=== PATIENT | female | born 1995 | race Two or more races ===

== ENCOUNTER 2018-11-27 00:01 | Emergency (ER) | payer BC, OTHER ==
[2018-11-27] MEDS ORDERED: Cephalexin 250 MG Cap PO ONE (00:24)
--- NOTE | 2018-11-27 00:29 | EDM.PDOC ---
ED HPI GENERAL MEDICAL PROBLEM - General Chief Complaint: General Stated Complaint: infection Time Seen by Provider: 11/27/18 00:15 Source of Information: Reports: Patient History Limitations: Reports: No Limitations - History of Present Illness INITIAL COMMENTS - FREE TEXT/NARRATIVE: Patient is a 23-year-old female who presents to the emergency department this evening with a complaint of infection at surgical site. Patient states that she had a skin biopsy performed on her abdomen. 7 days ago. This was done by a commissioned police officer in [place]. Wound was closed with running suture. Patient states now she noticed redness around the site. Patient denies any discharge from site, abdominal pain, nausea, vomiting, diarrhea, or fever. Onset: Gradual Duration: Day(s): Location: Reports: Abdomen Severity: Mild Improves with: Reports: None Worsens with: Reports: None Associated Symptoms: Reports: No Other Symptoms. Denies: Fever/Chills Abdomen Pain Score (Numeric/FACES): 4 - Related Data Allergies Allergy/AdvReac Type Severity Reaction Status Date / Time aloe vera Allergy Itching Verified 11/27/18 00:09 Penicillins Allergy Hives Verified 11/27/18 00:08 Home Meds: Home Meds Ondansetron HCl [Ondansetron] 4 mg PO Q4H PRN 02/02/18 [History] Promethazine [Phenergan] 12.5 mg PO Q8H 02/02/18 [History] Cephalexin [Keflex] 500 mg PO TID #15 capsule 11/27/18 [Rx] Divalproex Sodium [Depakote] 500 mg PO BID 11/27/18 [History] Past Medical History Gastrointestinal History: Reports: GERD, Other (See Below) Other Gastrointestinal History: undiagnosed problem that has caused vomiting and weight loss - Past Surgical History HEENT Surgical History: Reports: Tonsillectomy ED ROS GENERAL - Review of Systems Review Of Systems: ROS reveals no pertinent complaints other than HPI. Constitutional: Reports: No Symptoms HEENT: Reports: No Symptoms Respiratory: Reports: No Symptoms Cardiovascular: Reports: No Symptoms Endocrine: Reports: No Symptoms GI/Abdominal: Reports: No Symptoms : Reports: No Symptoms Musculoskeletal: Reports: No Symptoms Skin: Reports: Erythema Neurological: Reports: No Symptoms Psychiatric: Reports: No Symptoms Hematologic/Lymphatic: Reports: No Symptoms Immunologic: Reports: No Symptoms ED EXAM, GENERAL - Physical Exam Exam: See Below Exam Limited By: No Limitations General Appearance: Alert, WD/WN, No Apparent Distress Throat/Mouth: Normal Inspection, Normal Oropharynx, No Airway Compromise Respiratory/Chest: No Respiratory Distress Neurological: Alert, Oriented, Normal Cognition Psychiatric: Normal Affect, Normal Mood Skin Exam: Warm, Dry, Intact, Normal Color, No Rash, Erythema (At lower right abdomen 2 cm biopsy incision site with running suture intact, has 1 cm border, erythema, without abscess) Lymphatic: No Adenopathy Course - Vital Signs Last Recorded V/S: Last Vital Signs Temp 99.1 F 11/27/18 00:12 Pulse 95 11/27/18 00:12 Resp 16 11/27/18 00:12 BP 143/74 H 11/27/18 00:12 Pulse Ox 97 11/27/18 00:12 - Orders/Labs/Meds Orders: Active Orders 24 hr Category Date Time Status cephALEXin [Keflex] Med 11/27/18 00:24 Once 500 mg PO ONETIME ONE - Re-Assessments/Exams Free Text/Narrative Re-Assessment/Exam: 11/27/18 00:29 Patient is afebrile, vital signs stable, given 500 mg Keflex in ER. Patient given prescription for Keflex and will follow-up with PCP in 2-3 days Departure - Departure Time of Disposition: 00:30 Disposition: Home, Self-Care 01 Condition: Good Clinical Impression: Cellulitis Qualifiers: Site of cellulitis: trunk Site of cellulitis of trunk: abdominal wall Qualified Code(s): L03.311 - Cellulitis of abdominal wall - Discharge Information Instructions: Cellulitis, Adult, [id number] Additional Instructions: Follow-up with PCP in 2-3 days. Return to emergency department sooner if symptoms continue or worsen. Take medication as prescribed. - My Orders Last 24 Hours: My Active Orders 11/27/18 00:24 cephALEXin [Keflex] 500 mg PO ONETIME ONE - Assessment/Plan Last 24 Hours: My Active Orders 11/27/18 00:24 cephALEXin [Keflex] 500 mg PO ONETIME ONE Assessment:: Cellulitis Plan: Follow-up with PCP
== END 2018-11-27 00:45 | disposition home or self-care (01) ==
LOC: KA.ED 00:01
DX: L03.311 Cellulitis of abdominal wall (principal); K21.9 Gastro-esophageal reflux disease without esophagitis; Z79.899 Other long term (current) drug therapy; Z88.0 Allergy status to penicillin; Z98.890 Other specified postprocedural states
CPT/HCPCS: 99282; A9270-GY

== ENCOUNTER 2020-05-29 00:25 | Emergency (ER) | payer MEDICAID ==
[2020-05-29] MEDS ORDERED: Propofol 200 MG/20 ML SDV IV ONE (00:26)
[2020-05-29] MEDS ORDERED: Succinylcholine 200 MG/10 ML MDV IV ONE (00:26)
[2020-05-29] MEDS ORDERED: Etomidate 2 MG/ML 10 ML SDV IV ONE (00:26)
[2020-05-29] MEDS: Sodium Chloride 0.9% 10 ML Syringe FLUSH PRN (00:50)
[2020-05-29] MEDS: levETIRAcetam in NaCl (iso-os) 500 MG in Premix Bag 1 BAG IV ONE ×6 (00:54→01:32)
--- NOTE | 2020-05-29 00:56 | EDM.PDOC ---
ED HPI GENERAL MEDICAL PROBLEM - General Chief Complaint: General Stated Complaint: seizure Time Seen by Provider: 05/29/20 00:25 Source of Information: Reports: EMS, Family - History of Present Illness INITIAL COMMENTS - FREE TEXT/NARRATIVE: 24 YO WF PRESENTS TO ER BY EMS IN STATUS EPILEPTICUS. PER EMS PT HAD BEEN SEIZING FOR 30 MINUTES PRIOR TO THIER ARRIVAL. PT WAS GIVEN VERSED 4MG AND ZOFRAN 8MG IN ROUTE AND WAS ACTIVELY SEIZING IN ER. PT WITH RECENT DIAGNOSIS OF SEIZURE DISORDER AND TAKING DEPAKOTE FOR SEIZURES. ACCORDING TO FAMILY, PT WAS DRINKING ALCOHOL TONIGHT AND WAS INTOXICATED AT TIME OF EMS CALL. PT WAS INTUBATED TO PROTECT AIRWAY IMMEDIATELY UPON ARRIVAL. FAMILY DENIES ANY FALL OR WITNESSED HEAD INJURY. FAMILY STATES SHE WAS WELL THIS EVENING AND DENIES ANY RECENT COUGH/CONGESTION, FEVER/CHILLS OR COMPLAINTS OF CHEST PAIN OR SHORTNESS OF BREATH. NO SIGNS OF INJURY ON EXAM. Onset: Sudden Duration: Hour(s): (1) Severity: Severe Improves with: Reports: None Worsens with: Reports: None Associated Symptoms: Reports: No Other Symptoms - Related Data Allergies Allergy/AdvReac Type Severity Reaction Status Date / Time aloe vera Allergy Itching Verified 05/29/20 00:27 Penicillins Allergy Hives Verified 05/29/20 00:27 Home Meds: Home Meds Divalproex Sodium [Depakote] 500 mg PO BID 11/27/18 [History] Past Medical History Gastrointestinal History: Reports: GERD, Other (See Below) Other Gastrointestinal History: undiagnosed problem that has caused vomiting and weight loss Neurological History: Reports: Seizure - Past Surgical History HEENT Surgical History: Reports: Tonsillectomy Other Cardiovascular Surgeries/Procedures: States she had a cardiac work up prior to surgery due to having a murmur Social & Family History - Family History Family Medical History: Noncontributory ED ROS GENERAL - Review of Systems Review Of Systems: Comprehensive ROS is negative, except as noted in HPI. Constitutional: Reports: No Symptoms Respiratory: Reports: No Symptoms Cardiovascular: Reports: No Symptoms Endocrine: Reports: No Symptoms GI/Abdominal: Reports: Vomiting : Reports: No Symptoms Musculoskeletal: Reports: No Symptoms Skin: Reports: No Symptoms Neurological: Reports: Seizure ED EXAM, GENERAL - Physical Exam Exam: See Below Exam Limited By: Altered Mental Status General Appearance: Alert, WD/WN, Obtunded, Severe Distress Eye Exam: Bilateral Eye: EOMI, PERRL Ears: Normal External Exam, Normal Canal, Hearing Grossly Normal, Normal TMs Throat/Mouth: Normal Inspection, Normal Lips, Normal Teeth, Normal Gums, Normal Oropharynx, Normal Voice, No Airway Compromise Head: Atraumatic, Normocephalic Neck: Normal Inspection, Supple, Non-Tender, Full Range of Motion Respiratory/Chest: No Respiratory Distress, Lungs Clear, Normal Breath Sounds, No Accessory Muscle Use, Chest Non-Tender Cardiovascular: Normal Peripheral Pulses, Regular Rate, Rhythm, No Edema, No Gallop, No JVD, No Murmur, No Rub GI/Abdominal: Normal Bowel Sounds, Soft, Non-Tender, No Organomegaly, No Distention, No Abnormal Bruit, No Mass Extremities: Normal Inspection, Normal Range of Motion, Non-Tender, Normal Capillary Refill, No Pedal Edema Neurological: Slow to Respond Skin Exam: Warm, Dry, Intact, Normal Color, No Rash EKG INTERPRETATION EKG Date: 05/29/20 Time: 01:03 Rhythm: NSR Rate (Beats/Min): 87 [place]: Normal P-Wave: Present QRS: Normal ST-T: Normal QT: Normal Course - Orders/Labs/Meds Orders: Active Orders 24 hr Category Date Time Status EKG Documentation Completion [RC] ASDIRECTED Care 05/29/20 00:32 Active Peripheral IV Care [RC] . DIRECTED Care 05/29/20 00:32 Active Chest 1V Frontal [CR] Stat Exams 05/29/20 00:32 Ordered Head wo Cont [CT] Stat Exams 05/29/20 00:32 Ordered Sodium Chloride 0.9% [Saline Flush] Med 05/29/20 00:32 Active 10 ml FLUSH Q8HR PRN Peripheral IV Insertion Adult [OM.PC] Routine Oth 05/29/20 00:32 Ordered EKG 12 Lead [EK] Stat Ther 05/29/20 00:32 Ordered Medication Orders Sodium Chloride (Saline Flush) 10 ml FLUSH Q8HR PRN PRN Reason: keep vein open Labs: Laboratory Tests 05/29/20 05/29/20 05/29/20 Range/Units 00:50 00:50 00:50 WBC 12.93 H (5.00-10.00) 10^3/uL RBC 4.84 (3.80-5.50) 10^6/uL Hgb 14.0 (12.0-16.0) g/dL Hct 42.7 (37.0-47.0) % MCV 88.2 (82.0-92.0) fL MCH 28.9 (27.0-31.0) pg MCHC 32.8 (32.0-36.0) g/dL RDW 13.5 (11.5-14.5) % Plt Count 345 (150-400) 10^3/uL MPV 10.1 (7.4-10.4) fL Immature Gran % (Auto) 0.2 (0.0-5.0) % Neut % (Auto) 55.4 (50.0-70.0) % Lymph % (Auto) 39.6 (20.0-40.0) % Glades % (Auto) 3.4 (2.0-8.0) % Eos % (Auto) 1.2 (1.0-3.0) % Baso % (Auto) 0.2 (0.0-1.0) % Neut # (Auto) 7.15 H (2.50-7.00) 10^3/uL Lymph # (Auto) 5.12 H (1.00-4.00) 10^3/uL [place] # (Auto) 0.44 (0.10-0.80) 10^3/uL Eos # (Auto) 0.16 (0.10-0.30) 10^3/uL Baso # (Auto) 0.03 (0.00-0.10) 10^3/uL Immature Gran # (Auto) 0.03 (0.00-0.50) 10^3/uL Sodium 142 (136-145) mmol/L Potassium 3.9 (3.3-5.3) mmol/L Chloride 106 (98-115) mmol/L Carbon Dioxide 23.9 (21.0-32.0) mmol/L Anion Gap 16.0 H (5-15) mmol/L BUN 8 (6-25) mg/dL Creatinine 0.75 (0.51-1.17) mg/dL Est Cr Clr Drug Dosing 110.14 mL/min Estimated GFR (MDRD) > 60 mL/min Glucose 102 H (75 - 99) mg/dL Lactic Acid 1.3 (0.4-2.0) mmol/L Calcium 8.1 L (8.7-10.3) mg/dL Total Bilirubin 0.1 L (0.2-1.0) mg/dL AST 21 (15-37) U/L ALT 33 (12-78) U/L Alkaline Phosphatase 102 (46-116) IU/L Creatine Kinase 67 (26-276) U/L CK-MB (CK-2) 0.80 (0.00-4.30) ng/mL Troponin I 0.05 (0.00-0.070) ng/mL Total Protein 7.2 (6.4-8.2) g/dL Albumin 3.98 (3.00-4.80) g/dL HCG, Qual Negative (NEGATIVE) Urine Opiates Screen (NEGATIVE) Ur Oxycodone Screen (NEGATIVE) Urine Methadone Screen (NEGATIVE) Ur Propoxyphene Screen (NEGATIVE) Acetaminophen (10.0-30.0) ug/mL Ur Barbiturates Screen (NEGATIVE) Ur Tricyclics Screen (NEGATIVE) Ur Phencyclidine Scrn (NEGATIVE) Ur Amphetamine Screen (NEGATIVE) U Methamphetamines Scrn (NEGATIVE) U Benzodiazepines Scrn (NEGATIVE) U Cocaine Metab Screen (NEGATIVE) U Marijuana (THC) Screen (NEGATIVE) Ethyl Alcohol 175 H* (NONE DETECTED) mg/dL 05/29/20 05/29/20 Range/Units 00:50 01:23 WBC (5.00-10.00) 10^3/uL RBC (3.80-5.50) 10^6/uL Hgb (12.0-16.0) g/dL Hct (37.0-47.0) % MCV (82.0-92.0) fL MCH (27.0-31.0) pg MCHC (32.0-36.0) g/dL RDW (11.5-14.5) % Plt Count (150-400) 10^3/uL MPV (7.4-10.4) fL Immature Gran % (Auto) (0.0-5.0) % Neut % (Auto) (50.0-70.0) % Lymph % (Auto) (20.0-40.0) % Glades % (Auto) (2.0-8.0) % Eos % (Auto) (1.0-3.0) % Baso % (Auto) (0.0-1.0) % Neut # (Auto) (2.50-7.00) 10^3/uL Lymph # (Auto) (1.00-4.00) 10^3/uL [place]ades # (Auto) (0.10-0.80) 10^3/uL Eos # (Auto) (0.10-0.30) 10^3/uL Baso # (Auto) (0.00-0.10) 10^3/uL Immature Gran # (Auto) (0.00-0.50) 10^3/uL Sodium (136-145) mmol/L Potassium (3.3-5.3) mmol/L Chloride (98-115) mmol/L Carbon Dioxide (21.0-32.0) mmol/L Anion Gap (5-15) mmol/L BUN (6-25) mg/dL Creatinine (0.51-1.17) mg/dL Est Cr Clr Drug Dosing mL/min Estimated GFR (MDRD) mL/min Glucose (75 - 99) mg/dL Lactic Acid (0.4-2.0) mmol/L Calcium (8.7-10.3) mg/dL Total Bilirubin (0.2-1.0) mg/dL AST (15-37) U/L ALT (12-78) U/L Alkaline Phosphatase (46-116) IU/L Creatine Kinase (26-276) U/L CK-MB (CK-2) (0.00-4.30) ng/mL Troponin I (0.00-0.070) ng/mL Total Protein (6.4-8.2) g/dL Albumin (3.00-4.80) g/dL HCG, Qual (NEGATIVE) Urine Opiates Screen Negative (NEGATIVE) Ur Oxycodone Screen Negative (NEGATIVE) Urine Methadone Screen Negative (NEGATIVE) Ur Propoxyphene Screen Negative (NEGATIVE) Acetaminophen 0.0 L (10.0-30.0) ug/mL Ur Barbiturates Screen Negative (NEGATIVE) Ur Tricyclics Screen Negative (NEGATIVE) Ur Phencyclidine Scrn Negative (NEGATIVE) Ur Amphetamine Screen Negative (NEGATIVE) U Methamphetamines Scrn Negative (NEGATIVE) U Benzodiazepines Scrn Positive H (NEGATIVE) U Cocaine Metab Screen Negative (NEGATIVE) U Marijuana (THC) Screen Negative (NEGATIVE) Ethyl Alcohol (NONE DETECTED) mg/dL Meds: Medications Generic Name Dose Route Start Last Admin Trade Name Freq PRN Reason Stop Dose Admin Sodium Chloride 10 ml 05/29/20 00:32 Saline Flush FLUSH Q8HR PRN keep vein open Discontinued Medications Generic Name Dose Route Start Last Admin Trade Name Freq PRN Reason Stop Dose Admin Sodium Chloride 1,000 mls @ 999 mls/hr 05/29/20 00:32 Normal Saline IV 05/29/20 01:32 .BOLUS ONE Levetiracetam 500 mg/ Premix 100 mls @ 400 mls/hr 05/29/20 00:50 IV 05/29/20 01:04 ONETIME ONE Levetiracetam Confirm 05/29/20 00:54 Levetiracetam In Nacl (Iso-Os) Administered 05/29/20 00:55 Dose 500 mg in 100 mls @ as directed .ROUTE .STK-MED ONE Levetiracetam Confirm 05/29/20 00:58 Levetiracetam In Nacl (Iso-Os) Administered 05/29/20 00:59 Dose 1,000 mg in 200 mls @ as directed .ROUTE .STK-MED ONE Propofol Confirm 05/29/20 01:20 Diprivan 20 Ml Administered 05/29/20 01:21 Dose 200 mg .ROUTE .STK-MED ONE - Radiology Interpretation Free Text/Narrative:: CXR- NAD; TUBE PLACEMENT SATISFACTORY CT HEAD- NAD Departure - Departure Time of Disposition: 01:46 Disposition: DC/Tfer to Acute Hospital 02 Condition: Critical Clinical Impression: Status epilepticus, Airway intubation performed without difficulty - Discharge Information Referrals: PCP,Unknown [Primary Care Provider] - Forms: ED Department Discharge, Interfacility Transfer EMTALA - My Orders Last 24 Hours: My Active Orders 05/29/20 00:32 EKG Documentation Completion [RC] ASDIRECTED Peripheral IV Care [RC] . DIRECTED Chest 1V Frontal [CR] Stat Head wo Cont [CT] Stat Sodium Chloride 0.9% [Saline Flush] 10 ml FLUSH Q8HR PRN Peripheral IV Insertion Adult [OM.PC] Routine EKG 12 Lead [EK] Stat - Assessment/Plan Last 24 Hours: My Active Orders 05/29/20 00:32 EKG Documentation Completion [RC] ASDIRECTED Peripheral IV Care [RC] . DIRECTED Chest 1V Frontal [CR] Stat Head wo Cont [CT] Stat Sodium Chloride 0.9% [Saline Flush] 10 ml FLUSH Q8HR PRN Peripheral IV Insertion Adult [OM.PC] Routine EKG 12 Lead [EK] Stat Assessment:: 1. STATUS EPILEPTICUS Plan: 1. TRANSFER TO [facility]- DR GARCIA ACCEPTING 2. KEPPRA 1500MG IV NOW 3. SUPPORTIVE CARE 4. AIRWAY MANAGEMENT
[2020-05-29 01:31] LABS: CHLORIDE,CL 106 mmol/L (98-115); SODIUM,NA 142 mmol/L (136-145)
[2020-05-29 01:39] LABS: BARBITURATE SCREEN,URINE NEGATIVE (NEGATIVE); BENZODIAZEPINES SCREEN,URINE POSITIVE (NEGATIVE); TCA SCREEN,URINE NEGATIVE (NEGATIVE); THC SCREEN,URINE 50 NG/ML NEGATIVE (NEGATIVE)
[2020-05-29] MEDS: Sodium Chloride 0.9% 1,000 ML IV ONE ×2 (01:45→03:10)
[2020-05-29] MEDS: LEVETIRACETAM IN NACL ONE (02:56)
[2020-05-29] MEDS: SODIUM CHLORIDE ONE (02:56)
[2020-05-29] MEDS: LEVETIRACETAM ONE (02:56)
[2020-05-29] MEDS: Propofol 200 MG/20 ML SDV ONE (02:57)
[2020-05-29] MEDS: Sodium Chloride 0.9% 50 ML ONE (03:09)
--- NOTE | 2020-05-29 09:02 | CT ---
[id number] CT/CT Head WO IV EXAM: CT Head WO IV CLINICAL DATA: SEIZURE COMPARISON: CORRELATION IS MADE WITH MAY 19, 2020 FINDINGS: There is no mass or mass effect. There is no hemorrhage or hydrocephalus. There are no extra-axial fluid collections. There are no sites of abnormal attenuation. IMPRESSION: NO PLAIN CT EVIDENCE OF ACUTE INTRACRANIAL PROCESS. Brien Massey MD 05/29/20 0900 Thank you for allowing us to participate in the care of your patient.
--- NOTE | 2020-05-29 09:02 | CR ---
[id number] RAD/RAD Chest PA or AP 1V EXAM: SINGLE VIEW CHEST. INDICATION: SEIZURE COMPARISON: CORRELATION IS MADE WITH APRIL 25, 2020 FINDINGS: The endotracheal tube and NG tube appear in good position The lungs are clear The cardiac silhouette is stable IMPRESSION: ET TUBE AND NG TUBE IN GOOD POSITION Brien Massey MD 05/29/20 0901 Thank you for allowing us to participate in the care of your patient.
== END 2020-05-29 01:55 ==
LOC: KA.ED 00:25
DX: G40.901 Epilepsy, unspecified, not intractable, with status epilepticus (principal); Z91.018 Allergy to other foods; Z88.0 Allergy status to penicillin; Z79.899 Other long term (current) drug therapy
CPT/HCPCS: 31500; 36415; 43752; 51702; 70450; 71045; 80053; 80305-QW; 80307; 82550; 82553; 83605; 84484; 84703; 85025; 93005; 96365; 96366; 96376; 99284; 99285-25; J0330; J1953; J2704; J3490; J7030

== ENCOUNTER 2024-02-21 23:31 | Emergency (ER) | payer OTHER, MEDICAID ==
[2024-02-21 23:51] LABS: BASOPHILS ABSOLUTE AUTO 0.04 10^3/uL (0.00-0.10); BASOPHILS PERCENT AUTO 0.4 % (0.0-1.0); EOSINOPHILS ABSOLUTE AUTO 0.14 10^3/uL (0.10-0.30); EOSINOPHILS PERCENT AUTO 1.3 % (1.0-3.0); HEMATOCRIT 40.7 % (37.0-47.0); HEMOGLOBIN 13.9 g/dL (12.0-16.0); IMMATURE GRAN ABSOLUTE AUTO 0.04 10^3/uL (0.00-0.50); IMMATURE GRAN PERCENT AUTO 0.4 % (0.0-5.0); LYMPHOCYTES ABSOLUTE AUTO 3.47 10^3/uL (1.00-4.00); LYMPHOCYTES PERCENT AUTO 31.4 % (20.0-40.0); MEAN CORPUSCULAR HEMOGLOBIN 30.2 pg (27.0-31.0); MEAN CORPUSCULAR HGB CONC 34.2 g/dL (32.0-36.0); MEAN CORPUSCULAR VOLUME 88.3 fL (82.0-92.0); MONOCYTES ABSOLUTE AUTO 0.54 10^3/uL (0.10-0.80); MONOCYTES PERCENT AUTO 4.9 % (2.0-8.0); NEUTROPHILS ABSOLUTE AUTO 6.82 10^3/uL (2.50-7.00); NEUTROPHILS PERCENT AUTO 61.6 % (50.0-70.0); PLATELET COUNT,PLT 275 10^3/uL (150-400); RED BLOOD CELL COUNT 4.61 10^6/uL (3.80-5.50); RED CELL DISTRIBUTION WIDTH 13.1 % (11.5-14.5); WHITE BLOOD CELL COUNT,WBC 11.05 10^3/uL (5.00-10.00)
[2024-02-22 00:06] LABS: ANION GAP 15.2 mmol/L (5-15); CALCIUM 8.7 mg/dL (8.7-10.3); CARBON DIOXIDE,CO2 26.4 mmol/L (21.0-32.0); CREATININE 0.84 mg/dL (0.51-1.17); EST CRCL DRUG DOSING (CG) 80.27 mL/min; POTASSIUM,K 3.6 mmol/L (3.5-5.1)
[2024-02-22] MEDS: Lidocaine 2% with EPINEPHrine 1:100,000 20 ML MDV INJECT ONE (00:10)
[2024-02-22] MEDS: Sodium Chloride 0.9% 1,000 ML IV ONE (00:13)
[2024-02-22] MEDS: Lidocaine 2% with EPINEPHrine 1:100,000 20 ML MDV ONE (00:17)
[2024-02-22] MEDS: cefTRIAXone 1 GM Vial IVPUSH ONE (00:59)
[2024-02-22] MEDS: cefTRIAXone 1 GM Vial ONE (01:17)
[2024-02-22 01:29] LABS: AMPHETAMINES SCREEN, URINE NEGATIVE (NEGATIVE); BARBITURATE SCREEN,URINE NEGATIVE (NEGATIVE); BENZODIAZEPINES SCREEN,URINE NEGATIVE (NEGATIVE); COCAINE METABOLITES,URINE NEGATIVE (NEGATIVE); METHADONE SCREEN, URINE NEGATIVE (NEGATIVE); METHAMPHETAMINES SCREEN, URINE NEGATIVE (NEGATIVE); OXYCODONE SCREEN,URINE NEGATIVE (NEGATIVE); PCP SCREEN,URINE NEGATIVE (NEGATIVE); TCA SCREEN,URINE NEGATIVE (NEGATIVE); THC SCREEN,URINE 50 NG/ML POSITIVE (NEGATIVE)
[2024-02-22] MEDS: Clindamycin HCl 150 MG Cap PO SCH (01:33)
[2024-02-22] MEDS: Clindamycin HCl 150 MG Cap PO ONE (01:36)
== END 2024-02-22 01:45 | disposition home or self-care (01) ==
LOC: KA.ED 23:31
DX: S81.812A Laceration without foreign body, left lower leg, initial encounter (principal); Z88.0 Allergy status to penicillin; Z91.09 Other allergy status, other than to drugs and biological substances; Z79.899 Other long term (current) drug therapy; V28.29XA Unspecified rider of other motorcycle injured in noncollision transport accident in nontraffic accident, initial encounter
CPT/HCPCS: 12004; 12034; 36415; 73560-LT; 80048; 80305-QW; 80307; 81025; 85025; 96374; 99283; 99284-25; A9270-GY; J0696; J3490